=== PATIENT | male | born 1970 | race Caucasian/White ===

== ENCOUNTER 2022-01-15 16:57 | Emergency (ER) | payer BC, OTHER ==
[2022-01-15] MEDS ORDERED: Morphine 4 MG/ML VIAL IVPUSH ONE (17:21)
[2022-01-15] MEDS ORDERED: Ondansetron 4 MG/2 ML SDV IVPUSH ONE (17:23)
[2022-01-15] MEDS ORDERED: Sodium Chloride 0.9% 1,000 ML IV SCH (17:30)
[2022-01-15 17:40] LABS: ESTIMATED GFR 110 mL/min (>60)
[2022-01-15] MEDS ORDERED: Iopamidol 755 Mg/ML 100 ML Bottle IV ONE (18:04)
[2022-01-15] MEDS ORDERED: Sulfamethoxazole/Trimethoprim 800-160 MG Tab PO STA (18:51)
== END 2022-01-15 19:10 | disposition home or self-care (01) ==
LOC: FB.ED 16:57
DX: N39.0 Urinary tract infection, site not specified (principal); Z88.5 Allergy status to narcotic agent; Z79.899 Other long term (current) drug therapy
CPT/HCPCS: 74177; 80053; 81001; 82150; 83690; 85025; 96361; 96374; 96375; 99282; 99284-25; A9270-GY; J2270; J2405; J7030; Q9967

== ENCOUNTER 2023-05-25 14:08 | Emergency (ER) | payer OTHER ==
[2023-05-25] MEDS ORDERED: HYDROmorphone 2 MG/ML SDV IVPUSH ONE ×2 (14:50→15:11)
[2023-05-25] MEDS ORDERED: Ondansetron 4 MG/2 ML SDV IVPUSH ONE (14:50)
[2023-05-25] MEDS ORDERED: Sodium Chloride 0.9% 10 ML Syringe FLUSH PRN (14:50)
[2023-05-25] MEDS ORDERED: Sodium Chloride 0.9% 1,000 ML IV ONE (14:50)
[2023-05-25] MEDS ORDERED: Naloxone 0.4 MG/ML SDV IVPUSH PRN (15:11)
[2023-05-25 15:21] LABS: A/G RATIO 1.1; ALANINE AMINOTRANSFERASE,ALT 87 U/L (12-36); ALBUMIN 4.4 g/dL (3.5-5.2); ALKALINE PHOSPHATASE 92 IU/L (56-112); ASPARTATE AMNIOTRANSFERASE,AST 84 IU/L (5-25); BASOPHILS ABSOLUTE AUTO 0.1 x10-3/uL (0.0-0.3); BASOPHILS PERCENT AUTO 0.6 % (0.3-3.8); BILIRUBIN TOTAL 0.7 mg/dL (0.1-1.3); BLOOD UREA NITROGEN,BUN 14 mg/dL (7-18); BUN/CREATININE RATIO 15.6 (9-20); CALCIUM 9.7 mg/dL (8.6-10.2); CARBON DIOXIDE,CO2 24 mmol/L (21-32); CHLORIDE,CL 100 mmol/L (100-110); CREATININE 0.9 mg/dL (0.70-1.30); EOSINOPHILS ABSOLUTE AUTO 0.1 x10-3/uL (0.0-0.6); EST CRCL DRUG DOSING (CG) 106.04 mL/min; ESTIMATED GFR 101 mL/min (>60); GLUCOSE RANDOM 120 mg/dL (80-116); HEMOGLOBIN 19.2 g/dL (12.9-17.7); LYMPHOCYTES ABSOLUTE AUTO 3.4 x10-3/uL (0.5-4.5); LYMPHOCYTES PERCENT AUTO 38.6 % (15.8-45.3); MAGNESIUM 1.8 mg/dL (1.8-2.5); MEAN CORPUSCULAR HEMOGLOBIN 33.8 pg (27.0-33.3); MEAN CORPUSCULAR VOLUME 96.6 fL (80.8-98.7); MEAN PLATELET VOLUME 9.8 fL (6.7-11.0); MONOCYTES ABSOLUTE AUTO 0.9 x10-3/uL (0.0-1.2); MONOCYTES PERCENT AUTO 10.5 % (5.5-15.2); NEUTROPHILS ABSOLUTE AUTO 4.3 x10-3/uL (1.7-6.9); NEUTROPHILS PERCENT AUTO 49.3 % (40.3-71.8); PLATELET COUNT,PLT 208 x10(3)uL (117-477); POTASSIUM,K 3.6 mmol/L (3.5-5.3); PROTEIN TOTAL,TP 8.6 g/dL (6.0-8.0); RED BLOOD CELL COUNT 5.69 x10(6)uL (3.90-5.90); RED CELL DISTRIBUTION WIDTH 12.6 % (12.4-15.0); SODIUM,NA 137 mmol/L (135-145); WHITE BLOOD CELL COUNT,WBC 8.7 x10-3/uL (3.2-10.1)
[2023-05-25 15:41] LABS: ETHANOL BLOOD MEDICAL 0.29 % (<0.03)
[2023-05-25 15:41] LABS: BILIRUBIN,URINE NEGATIVE (NEGATIVE); GLUCOSE,URINE NORMAL (NORMAL); KETONES,URINE NEGATIVE (NEGATIVE); LEUKOCYTE ESTERASE,URINE NEGATIVE (NEGATIVE); NITRITE,URINE NEGATIVE (NEGATIVE); OCCULT BLOOD,URINE MODERATE (NEGATIVE); PROTEIN,URINE 500 mg/dL (NEGATIVE); UROBILINOGEN,URINE NORMAL (NEGATIVE)
[2023-05-25 15:42] LABS: APPEARANCE,URINE CLEAR (CLEAR); BACTERIA,URINE FEW (NS); COLOR,URINE YELLOW (YELLOW); SQUAMOUS EPITHELIAL CELLS,UR FEW (NS,R,O); WBC,URINE 0-5 (0-5)
== END 2023-05-25 17:27 | disposition home or self-care (01) ==
LOC: FB.ED 14:08
DX: M54.50 Low back pain, unspecified (principal); R10.32 Left lower quadrant pain; E86.0 Dehydration; F10.120 Alcohol abuse with intoxication, uncomplicated; D75.1 Secondary polycythemia; F17.210 Nicotine dependence, cigarettes, uncomplicated; Z88.5 Allergy status to narcotic agent
CPT/HCPCS: 36415; 74176; 80053; 80307; 81001; 83605; 83690; 83735; 85025; 86140; 96361; 96374; 96375; 99284; J1170; J2405; J7030

== ENCOUNTER 2025-03-29 16:18 | Emergency (ER) | payer BC, OTHER ==
[2025-03-29] MEDS: Ondansetron 4 MG Tab.DIS PO STA (16:48)
[2025-03-29 17:03] LABS: BASOPHILS ABSOLUTE AUTO 0.1 x10-3/uL (0.0-0.3); BASOPHILS PERCENT AUTO 0.9 % (0.3-3.8); EOSINOPHILS ABSOLUTE AUTO 0.0 x10-3/uL (0.0-0.6); EOSINOPHILS PERCENT AUTO 0.4 % (0.1-6.8); LYMPHOCYTES ABSOLUTE AUTO 1.2 x10-3/uL (0.5-4.5); LYMPHOCYTES PERCENT AUTO 18.9 % (15.8-45.3); MEAN PLATELET VOLUME 9.9 fL (6.7-11.0); MONOCYTES ABSOLUTE AUTO 0.7 x10-3/uL (0.0-1.2); MONOCYTES PERCENT AUTO 11.4 % (5.5-15.2); NEUTROPHILS ABSOLUTE AUTO 4.5 x10-3/uL (1.7-6.9); NEUTROPHILS PERCENT AUTO 68.4 % (40.3-71.8); PLATELET COUNT,PLT 188 x10(3)uL (117-477); RED BLOOD CELL COUNT 5.07 x10(6)uL (3.90-5.90); RED CELL DISTRIBUTION WIDTH 12.8 % (12.4-15.0); WHITE BLOOD CELL COUNT,WBC 6.5 x10-3/uL (3.2-10.1)
[2025-03-29 17:08] LABS: BLOOD UREA NITROGEN,BUN 12 mg/dL (7-18); CARBON DIOXIDE,CO2 28 mmol/L (21-32); CHLORIDE,CL 102 mmol/L (100-110); CREATININE 0.6 mg/dL (0.70-1.30); ESTIMATED GFR 113 mL/min (>60); GLUCOSE RANDOM 104 mg/dL (80-116); POTASSIUM,K 4.1 mmol/L (3.5-5.3); SODIUM,NA 140 mmol/L (135-145)
== END 2025-03-29 17:45 | disposition home or self-care (01) ==
LOC: FB.ED 16:18
DX: S39.012A Strain of muscle, fascia and tendon of lower back, initial encounter (principal); F17.200 Nicotine dependence, unspecified, uncomplicated; Z88.5 Allergy status to narcotic agent; X58.XXXA Exposure to other specified factors, initial encounter
CPT/HCPCS: 36415; 74176; 80048; 85025; 99284; A9270; Q0162